=== PATIENT | female | born 1935 | race Caucasian/White ===

== ENCOUNTER 2020-12-14 08:53 | Inpatient (IN) | payer MEDICARE ==
[~2020-12-14] VITALS: Ht 157.5 cm; Wt 68.0 kg
[2020-12-14] MEDS ORDERED: SODIUM CHLORIDE 0.9% 1000ML 1,000 ML IV STA (09:08)
[2020-12-14] MEDS ORDERED: ONDANSETRON HCL INJ 2MG/ML 2ML 2 MG/ML VIAL IV NR (09:15)
[2020-12-14] MEDS ORDERED: PANTOPRAZOLE 40 MG 10ML VIAL IV NR (09:15)
[2020-12-14 09:28] LABS: BASOPHILS % 0.2 % (0.0-1.0); HEMATOCRIT 36.5 % (34.2-44.1); HEMOGLOBIN 11.9 g/dL (12.0-16.0); LYMPHOCYTES # (AUTO) 0.7 (1.0-3.2); LYMPHOCYTES % 6.3 % (18.0-39.1); MEAN CORPUSCULAR HGB CONC 32.6 g/dL (31-35); MONOCYTES # (AUTO) 0.5 (0.2-0.8); MONOCYTES % 4.3 % (4.4-11.3); NEUTROPHILS # (AUTO) 10.5 (2.1-6.9); NEUTROPHILS % 88.9 % (38.7-80.0); PLATELET COUNT 268 x10e3/uL (140-360)
[2020-12-14 09:37] LABS: INR 0.93; PARTIAL THROMBOPLASTIN TIME 26.9 seconds (23.8-35.5); PROTHROMBIN TIME 13.1 seconds (11.9-14.5)
[2020-12-14 09:45] LABS: ALBUMIN/GLOBULIN RATIO 1.3 (0.8-2.0); CALCIUM 9.2 mg/dL (8.4-10.2); CREATININE, SERUM 1.1 mg/dL (0.57-1.11)
[2020-12-14 09:51] LABS: CREATINE KINASE MB 3.9 ng/mL (0-5.0)
[2020-12-14] MEDS ORDERED: SODIUM CHLORIDE 0.9% 1000ML 1,000 ML IV SCH (10:30)
[2020-12-14] MEDS ORDERED: GLUCAGON FOR INJ 1 MG VIAL IV ONE (10:45)
[2020-12-14] MEDS ORDERED: LIDOCAINE HCL 2% LOCAL INJ 5 ML SDV VIAL INJ ONE (13:03)
[2020-12-14] MEDS ORDERED: LIDOCAINE HCL 2% JELLY 5 ML TUBE ONE (13:03)
[2020-12-14] MEDS ORDERED: LABETALOL HCL 5 MG/ML 20ML VIAL ONE (13:03)
[2020-12-14] MEDS ORDERED: METOCLOPRAMIDE HCL 10 MG/2ML VIAL ONE (13:03)
[2020-12-14] MEDS ORDERED: POVIDONE IODINE 0.05% 0.05 % ML PO ONE (13:03)
[2020-12-14] MEDS ORDERED: ETOMIDATE 2 MG/ML 10 ML INJ IV ONE (13:03)
[2020-12-14] MEDS ORDERED: DEXAMETHASONE SOD PHOS INJ 4 MG/ML VIAL ONE (13:03)
[2020-12-14] MEDS ORDERED: SUCCINYLCHOLINE CHLORIDE 20 MG/ML 10ML VIAL ONE (13:03)
[2020-12-14] MEDS ORDERED: ONDANSETRON HCL INJ 2MG/ML 2ML 2 MG/ML VIAL ONE (13:03)
[2020-12-14] MEDS ORDERED: SEVOFLURANE INHAL SOLN 250 ML PEN BTL ONE (13:03)
[2020-12-14] MEDS ORDERED: PROPOFOL IV EMULSION 10 MG/ML 20 ML VIAL ONE (13:03)
[2020-12-14] MEDS ORDERED: GLUCAGON FOR INJ 1 MG VIAL ONE (13:05)
[2020-12-14 14:15] VITALS: BP_SYST 161; BP_SYST 167; BP_DIAS 75
[2020-12-14] MEDS: PANTOPRAZOLE INJ 40 MG in SODIUM CHLORIDE 0.9% 50ML 50 ML IV SCH ×2 (16:30→21:30)
[2020-12-14] MEDS ORDERED: LORAZEPAM INJ 2 MG/ML VIAL IV PRN (16:45)
[2020-12-14 16:48] VITALS: BP_SYST 154; BP_SYST 161; BP_DIAS 73; BP_DIAS 75
[2020-12-14 18:08] LABS: BASOPHILS % 0.2 % (0.0-1.0); HEMATOCRIT 30.5 % (34.2-44.1); LYMPHOCYTES # (AUTO) 0.4 (1.0-3.2); LYMPHOCYTES % 3.8 % (18.0-39.1); MEAN CORPUSCULAR HEMOGLOBIN 29.4 pg (28-32); MEAN CORPUSCULAR HGB CONC 32.8 g/dL (31-35); MEAN CORPUSCULAR VOLUME 89.7 fL (81-99); MONOCYTES # (AUTO) 0.1 (0.2-0.8); MONOCYTES % 1.3 % (4.4-11.3); NEUTROPHILS # (AUTO) 9.8 (2.1-6.9); NEUTROPHILS % 94.2 % (38.7-80.0); PLATELET COUNT 207 x10e3/uL (140-360)
[2020-12-14] MEDS: METOCLOPRAMIDE HCL 10 MG/2ML VIAL IV SCH ×2 (18:13→23:07)
[2020-12-14 18:36] LABS: CREATINE KINASE MB 11.6 ng/mL (0-5.0)
[2020-12-14] MEDS ORDERED: MULTI-VITAMIN1 EACH PO (20:12)
[2020-12-14] MEDS ORDERED: LISINOPRIL5 MG PO (20:12)
[2020-12-14] MEDS ORDERED: LABETALOL HCL200 MG PO (20:12)
[2020-12-14] MEDS ORDERED: VITAMIN D350 MCG PO (20:12)
[2020-12-14] MEDS ORDERED: SIMVASTATIN20 MG PO (20:12)
[2020-12-14] MEDS ORDERED: ZETIA10 MG PO (20:12)
[2020-12-14] MEDS ORDERED: VITAMIN B-121000 MCG PO (20:12)
[2020-12-14 20:41] VITALS: BP 161/77
[2020-12-14 21:00] VITALS: BP 161/77
[2020-12-14] MEDS ORDERED: SIMVASTATIN 20 MG TAB PO SCH (21:00)
[2020-12-14] MEDS ORDERED: PANTOPRAZOLE 40 MG 10ML VIAL IV SCH (21:00)
[2020-12-14] MEDS: LISINOPRIL 2.5 MG TAB PO SCH (21:30)
[2020-12-14] MEDS: LABETALOL HCL 200 MG TAB PO SCH (21:30)
[2020-12-14 23:59] VITALS: BP 163/68
[2020-12-15] MEDS: PANTOPRAZOLE INJ 40 MG in SODIUM CHLORIDE 0.9% 50ML 50 ML IV SCH ×2 (02:44→08:36)
[2020-12-15 05:10] VITALS: BP 167/56
[2020-12-15 05:17] LABS: BASOPHILS % 0.1 % (0.0-1.0); HEMATOCRIT 30.7 % (34.2-44.1); HEMOGLOBIN 10.1 g/dL (12.0-16.0); LYMPHOCYTES % 10.8 % (18.0-39.1); MEAN CORPUSCULAR HEMOGLOBIN 29.1 pg (28-32); MEAN CORPUSCULAR HGB CONC 32.9 g/dL (31-35); MEAN CORPUSCULAR VOLUME 88.5 fL (81-99); MONOCYTES # (AUTO) 0.6 (0.2-0.8); MONOCYTES % 7.1 % (4.4-11.3); NEUTROPHILS # (AUTO) 7.3 (2.1-6.9); NEUTROPHILS % 81.3 % (38.7-80.0); PLATELET COUNT 209 x10e3/uL (140-360); RED BLOOD COUNT 3.47 x10e6/uL (3.6-5.1)
[2020-12-15] MEDS: METOCLOPRAMIDE HCL 10 MG/2ML VIAL IV SCH ×2 (06:09→12:14)
[2020-12-15 06:38] LABS: FERRITIN 132.9 ng/mL (4.63-204.00)
[2020-12-15 07:45] VITALS: BP 160/74
[2020-12-15 08:22] VITALS: BP 176/61
[2020-12-15] MEDS: LISINOPRIL 2.5 MG TAB PO SCH (08:36)
[2020-12-15] MEDS: LABETALOL HCL 200 MG TAB PO SCH (08:37)
[2020-12-15] MEDS ORDERED: CHOLECALCIFEROL 1,000 UNIT TAB PO SCH (09:00)
[2020-12-15] MEDS ORDERED: EZETIMIBE 10 MG TAB PO SCH (09:00)
[2020-12-15] MEDS ORDERED: CYANOCOBALAMIN 1,000 MCG TAB PO SCH (09:00)
[2020-12-15] MEDS ORDERED: MULTIVITAMINS/MINERALS TAB PO SCH (09:00)
[2020-12-15 11:52] VITALS: BP 149/67
== END 2020-12-15 14:09 | disposition home or self-care (01) | DRG 394 ==
LOC: ER 09:32 → ERHOLD 10:29 → MED/SURG3 11:58
PROVIDERS: ADMIT Internal Medicine; ATTEND Internal Medicine
PROC: 0DC58ZZ Extirpation of Matter from Esophagus, Via Natural or Artificial Opening Endoscopic (ICD-10-PCS; principal; 2020-12-14 12:30)
DX: T18.128A Food in esophagus causing other injury, initial encounter (principal); K22.10 Ulcer of esophagus without bleeding; K20.90 Esophagitis, unspecified without bleeding; K21.9 Gastro-esophageal reflux disease without esophagitis; I10 Essential (primary) hypertension; E78.5 Hyperlipidemia, unspecified; D64.9 Anemia, unspecified; K29.70 Gastritis, unspecified, without bleeding; K44.9 Diaphragmatic hernia without obstruction or gangrene; Z82.49 Family history of ischemic heart disease and other diseases of the circulatory system; K31.89 Other diseases of stomach and duodenum; Z20.822 Contact with and (suspected) exposure to COVID-19
CPT/HCPCS: 36415; 43239; 71045; 80053; 82550; 82553; 82607; 82728; 82746; 83540; 83690; 84466; 84484; 85025; 85045; 85610; 85730; 93005; 99284; J0330; J1100; J1610; J2001; J2060; J2405; J2765; J7030; U0002